=== PATIENT | female | born 1960 | race Caucasian/White ===

== ENCOUNTER → 2018-03-16 13:13 | Outpatient (CLI) | payer OTHER, SELFPAY ==
--- NOTE | 2018-03-16 13:16 | BI_ITS ---
MAMMOGRAPHY - BILATERAL SCREENING 3-D FOREIGN SYNTHESIS REASON FOR EXAM: Female, 57 years old. Bilateral Screening 3-D tomosynthesis PERTINENT HISTORY: No significant family history. TECHNIQUE: 2-D mammograms and 3-D Foreign synthesis of the breast (s) were performed. CAD was performed. COMPARISON: March 02, 2017. FINDINGS: The breast composition is composed of scattered fibroglandular density. Scattered benign calcifications are seen. No dense spiculated masses or suspicious microcalcifications are identified. No architectural distortion is identified. There is no skin thickening or retraction. There has been no significant change since the prior study. BI/SCREENING MAMM (CAD), BILAT IMPRESSION: No mammographic signs of malignancy. Routine yearly mammograms recommended. ASSESSMENT CATEGORY: BIRADS Category 1: Negative. A letter regarding these results will be sent to the patient by the facility within 30 days. FOLLOW UP RECOMMENDATION: Yearly follow up mammogram recommended. (A) Approximately 10% of breast cancers are not detected by mammography. A normal mammogram should not delay biopsy of a clinically suspicious abnormality. Electronically Signed: Derrick Terry MD at 7:58 EDT , Service support ,
== END ==
PROVIDERS: Family Provider Family Medicine; PCP Family Medicine; Visit Provider Obstetrics & Gynecology
DX: Z12.31 Encounter for screening mammogram for malignant neoplasm of breast (principal)
CPT/HCPCS: 77063; 77067

== ENCOUNTER → 2019-03-30 14:35 | Outpatient (CLI) | payer OTHER, SELFPAY ==
--- NOTE | 2019-03-30 14:38 | BI_ITS ---
MAMMOGRAPHY - BILATERAL SCREENING 3-D TOMOSYNTHESIS REASON FOR EXAM: Female, 58 years old. Bilateral Screening 3-D tomosynthesis PERTINENT HISTORY: Sister at age 40 and maternal grandmother at age 80 with breast cancer. Paternal grandmother at age 40 with breast cancer.. TECHNIQUE: 2-D mammograms and 3-D Tomosynthesis of the breast (s) were performed. CAD was performed. COMPARISON: March 16, 2018. FINDINGS: The breast composition is composed of scattered fibroglandular density. Scattered benign calcifications are seen. No dense spiculated masses or suspicious clustered microcalcifications are identified. No architectural distortion is identified. There is no skin thickening or retraction. Completely stable, well-circumscribed, subcentimeter nodules are identified bilaterally. There are typically benign-appearing calcifications. There has been no significant change since the prior study. BI/SCREENING MAMM (CAD), BILAT IMPRESSION: Stable examination. No mammographic signs of malignancy. Routine yearly mammograms recommended. ASSESSMENT CATEGORY: BIRADS Category 2: Benign. A letter regarding these results will be sent to the patient by the facility within 30 days. FOLLOW UP RECOMMENDATION: Yearly follow up mammogram recommended. (A) Approximately 10% of breast cancers are not detected by mammography. A normal mammogram should not delay biopsy of a clinically suspicious abnormality. Electronically Signed: Derrick Terry MD at 16:39 EDT , Service support ,
== END ==
PROVIDERS: Family Provider Family Medicine; PCP Family Medicine; Visit Provider Obstetrics & Gynecology
DX: Z12.31 Encounter for screening mammogram for malignant neoplasm of breast (principal)
CPT/HCPCS: 77063; 77067

== ENCOUNTER → 2020-02-01 12:07 | Outpatient (CLI) | payer OTHER, SELFPAY ==
[2020-02-01 12:39] LABS: D-Dimer Quantitative (DVT/PE) 0.28 FEU/ug/m (0.27-0.49)
== END ==
PROVIDERS: PCP Family Medicine; Referring Provider Internal Medicine Pulmonary Disease; Visit Provider Internal Medicine Pulmonary Disease
DX: I26.99 Other pulmonary embolism without acute cor pulmonale (principal); Z86.718 Personal history of other venous thrombosis and embolism
CPT/HCPCS: 36415; 85379

== ENCOUNTER → 2020-02-05 12:50 | Outpatient (CLI) | payer OTHER, SELFPAY ==
--- NOTE | 2020-02-05 13:06 | CT_ITS ---
STUDY: LOW DOSE CT LUNG CANCER SCREENING REASON FOR EXAM: Female, 59 years old. LUNG SCREEN, SMOKER X 20-30 YEARS 1/2 PPD, QUIT 2017, SOB RADIATION DOSAGE (If Supplied By Facility): CTDIvol = ( 1.70 ) mGy, DLP = ( 51.91 ) mGycm TECHNIQUE: No contrast was administered. Low dose technique was utilized (average mAS-38 and kVp 120). 1.25 mm axial source images with a slice interval of 1.25-mm were reconstructed in lung windows. 2.5 mm axial source images with a slice interval of 2.5-mm were reconstructed in lung windows. 5.0 mm axial source images with a slice interval of 5.0-mm were reconstructed in soft tissue windows. Nodule measured using lung windows on PACS and/or independent workstation with automated measurement of minimum and maximum diameter. Nodule measurement reported as average diameter rounded to the nearest whole number. Growth is defined as an increase ins size of greater than 1.5 mm. COMPARISON: None. FINDINGS: Lungs and pleura: Mild interstitial scarring is present in the right lower lobe and the left lower lobe costophrenic angle. No emphysematous cysts are present. No acute infiltrates or nodules. No effusions. No hyperinflation. Mediastinum and pulmonary delfino: No mass or adenopathy. Heart and great vessels: Normal heart size. No pericardial effusion. No aneurysms. Minor atherosclerotic plaque is present in the aortic arch. Skeletal structures and chest wall: Multilevel degenerative changes are seen in the spine. An old mid thoracic vertebral body compression deformity is also seen. Upper abdomen: Not optimized for soft tissue evaluation however, No acute or significant findings. CT/Low Dose CT Lung Screening IMPRESSION: 1. No demonstrated acute or significant process of the lungs. No emphysema or nodules or consolidation. 2. Minor interstitial scarring. 3. Lung-RADS category 1 - Continue annual screening with LDCT in 12 months. IMPORTANT NOTES FOR USE: ACR Lung-RADS Version 1.0 Assessment Categories Release Date: March 25, 2014 Category: Coded 0-4 bases on nodule(s) with highest degree of suspicion. Negative screen is defined as categories 1 and 2; a positive screen is defined as categories 3 and 4. Category 3 and 4A nodules that are unchanged on interval CT should be coded as category 2, and individuals returned to screening in 12 months. Category 4X: Category 3 or 4 nodules with additional imaging findings that increase the suspicion of lung cancer, such as spiculation, GGN that doubles in size in 1 year, enlarged lymph notes, etc. Category Modifiers: S (significant finding unrelated to lung cancer) and C (prior history of treated lung cancer) may be added to the 0-4 Lung-RADS Electronically Signed: Boyd Landon MD at 14:19 EDT , Service support ,
== END ==
PROVIDERS: PCP Family Medicine; Referring Provider Internal Medicine Pulmonary Disease; Visit Provider Internal Medicine Pulmonary Disease
DX: Z12.2 Encounter for screening for malignant neoplasm of respiratory organs (principal); Z87.891 Personal history of nicotine dependence
CPT/HCPCS: G0297

== ENCOUNTER → 2021-05-28 13:58 | Outpatient (CLI) | payer OTHER, SELFPAY ==
--- NOTE | 2021-05-28 14:07 | EKG12_ITS ---
Test Reason : PREOP Blood Pressure : / mmHG Vent. Rate : 064 BPM Atrial Rate : 064 BPM P-R Int : 170 ms QRS Dur : 096 ms QT Int : 418 ms P-R-T Axes : 020 037 042 degrees QTc Int : 431 ms Normal sinus rhythm Normal ECG Confirmed by YEMI GR, AUDELIA ([id number]), state editor RIKI BROWN ([id number]) on 05/29/2021 8:57:31 AM Referred By: José Miguel Mustafa Confirmed By:JYOTSNA BRAGG MD
[2021-05-28 15:15] LABS: Hematocrit 38.2 % (37-47); Hemoglobin 12.3 g/dL (12.0-15.0); Mean Corp Hgb Conc 32.2 g/dL (32-36); Mean Corpuscular Volume 93.2 fL (81-99); Mean Platelet Vol. 9.4 fl (6.2-12.0); Platelet Count 268 K/mm3 (150-450); RBC Distribution Width CV 13.4 % (11.6-14.6); RBC Distribution Width SD 45.7 fl (35.1-43.9); White Blood Count 5.7 K/mm3 (4.4-11.0)
[2021-05-28 15:43] LABS: Anion Gap 8 (5-15); BUN 18 mg/dL (7-18); BUN/Creat Ratio 16.8 RATIO (10-20); Calcium,Total 8.8 mg/dL (8.5-10.1); Chloride 107 mmol/L (98-107); Creatinine, Serum 1.07 mg/dL (0.55-1.02); EST Glomerular Filtration Rate 56 mL/min (>60); Est Glom Filt Rate - Afr Amer 68 mL/min (>60); Glucose 113 mg/dL (74-106); Potassium 3.6 mmol/L (3.5-5.1); Sodium Level 142 mmol/L (136-145)
== END ==
PROVIDERS: PCP Family Medicine; Referring Provider Surgery; Visit Provider Surgery
DX: Z01.812 Encounter for preprocedural laboratory examination (principal)
CPT/HCPCS: 36415; 80048; 85027; 87635; 93005; C9803; U0005; U0003

== ENCOUNTER → 2022-08-20 | Outpatient (CLI) | payer OTHER, SELFPAY ==
--- NOTE | 2022-08-20 15:28 | CT_ITS ---
STUDY: LOW DOSE CT LUNG CANCER SCREENING REASON FOR EXAM: Female, 61 years old. Former smoker with 40 pack-year history 8 years ago. Stopped RADIATION DOSAGE (If Supplied By Facility): CTDIvol = ( 3.02 ) mGy, DLP = ( 97.79 ) mGycm TECHNIQUE: No contrast was administered. Low dose technique was utilized (average mAS-38 and kVp 120). 1.25 mm axial source images with a slice interval of 1.25-mm were reconstructed in lung windows. 2.5 mm axial source images with a slice interval of 2.5-mm were reconstructed in lung windows. 5.0 mm axial source images with a slice interval of 5.0-mm were reconstructed in soft tissue windows. COMPARISON: 02/05/2020. NODULES: Total lung nodules (excluding granulomas): 0 Emphysema: Diffuse emphysematous changes. There is minimal linear scarring remaining in the lingula and right lower lobe. Endobronchial lesion: None Aorta: Minimal atherosclerotic changes without aneurysm. CORONARY ARTERIES: Coronary artery calcification are not present Heart: Normal Pulmonary artery: Normal Mediastinal nodes: Nonspecific subcentimeter mediastinal lymphadenopathy. This is unchanged. Other chest and abdominal findings: CT/Low Dose CT Lung Screening IMPRESSION: Lung-RADS category 1 - Continue annual screening with LDCT in 12 months. IMPORTANT NOTES FOR USE: ACR Lung-RADS Version 1.1 Assessment Categories Release Date: 2018 Category: Coded 0-4 bases on nodule(s) with highest degree of suspicion. Negative screen is defined as categories 1 and 2; a positive screen is defined as categories 3 and 4. Category 3 and 4A nodules that are unchanged on interval CT should be coded as category 2, and individuals returned to screening in 12 months. Category 4X: Category 3 or 4 nodules with additional imaging findings that increase the suspicion of lung cancer, such as spiculation, GGN that doubles in size in 1 year, enlarged lymph notes, etc. Category Modifiers: S (significant finding unrelated to lung cancer) Electronically Signed: Jonathan Mead DO at 16:30 EDT Reading Location ID and State: [address] [place] [address] Tel [phone], Service support ,
== END | disposition home or self-care (01) ==
LOC: CT 15:21
PROVIDERS: PCP Family Medicine; Visit Provider Internal Medicine Pulmonary Disease
DX: Z12.2 Encounter for screening for malignant neoplasm of respiratory organs (principal); Z87.891 Personal history of nicotine dependence
CPT/HCPCS: 71271

== ENCOUNTER → 2023-05-16 | Outpatient (CLI) | payer OTHER, SELFPAY ==
--- NOTE | 2023-05-16 09:42 | VDLE_ITS ---
Reason For Study: HX LLE DVT RIGHT LEFT CFV is compressible, spontaneous, phasic, CFV is compressible, spontaneous, phasic, competent and demonstrates normal competent, and demonstrates normal augmentation. augmentation. FV is compressible, spontaneous, phasic, FV is compressible, spontaneous, phasic, competent and demonstrates normal competent and demonstrates normal augmentation. augmentation. POP V is compressible, spontaneous, phasic, POP V is compressible, spontaneous, phasic, competent and demonstrates normal competent and demonstrates normal augmentation. augmentation. T/P Trunk is compressible. T/P Trunk is compressible. PTV is compressible. PTV is compressible. RT PerV is compressible. LT PerV is compressible. SSV proximal calf is competent and measures SSV proximal calf is competent and measures 0.17 x 0.18 cm. 0.13 X 0.12 cm. SFJ is competent w/GSV diameter 0.58 and no SFJ IS COMPETENT W/GSV diameter of 0.46 and flow in GSV S/P EVLA. no flow S/P EVLA GSV is occluded, S/P EVLA. GSV is occluded, S/P EVLA. Procedure This is a venous duplex using B-mode, color flow and spectral Doppler. Exam performed in department. VL/Venous Duplex US - Marcelo Extrem Interpretation Summary Deep veins of the lower extremities are bilaterally patent and compressible seg mentally. There is no evidence of deep vein thrombosis on either side. Valvular competence appears in tact within the proximal deep venous systems bilaterally. Great saphenous veins are occluded bi laterally, consistent with prior endothermal venous ablation procedures. Small saphenous veins are pa tent and competent bilaterally. Ordering Physician: José Miguel Mustafa Referring Physician: Fahad Garcia Performed By: Mona Hunter, RDCS, RVT
== END | disposition home or self-care (01) ==
PROVIDERS: PCP Family Medicine; Referring Provider Surgery; Visit Provider Surgery
DX: Z86.718 Personal history of other venous thrombosis and embolism (principal)
CPT/HCPCS: 93970

== ENCOUNTER → 2023-12-23 | Outpatient (CLI) | payer OTHER, SELFPAY ==
--- NOTE | 2023-12-23 16:12 | CT_ITS ---
STUDY: LOW DOSE CT LUNG CANCER SCREENING REASON FOR EXAM: Female, 63 years old. 4 cigarettes per day x20 years, quit in 2016 RADIATION DOSAGE (If Supplied By Facility): CTDIvol = ( 3.02 ) mGy, DLP = ( 96.28 ) mGycm TECHNIQUE: No contrast was administered. Low dose technique was utilized (average mAS-38 and kVp 120). 1.25 mm axial source images with a slice interval of 1.25-mm were reconstructed in lung windows. 2.5 mm axial source images with a slice interval of 2.5-mm were reconstructed in lung windows. 5.0 mm axial source images with a slice interval of 5.0-mm were reconstructed in soft tissue windows. COMPARISON: 2021, 2019 FINDINGS: The lung windows show the lungs to be mildly hyperexpanded with emphysematous blebs noted in both upper lung paez. Chronic interstitial changes noted in both lung paez without organized infiltrate, effusion, or suspicious noncalcified mass or nodule. Atelectatic scarring noted in both lung bases. The limited noncontrasted soft tissue windows show normal-appearing thyroid gland. No suspicious axillary, mediastinal or perihilar adenopathy. No calcified coronary vessels. Limited cuts through the upper abdomen show a small hiatal hernia with evidence of GE reflux. Bony structures show degenerative change CT/Low Dose CT Lung Screening IMPRESSION: Lung-RADS category 2 - Continue annual screening with LDCT in 12 months. IMPORTANT NOTES FOR USE: ACR Lung-RADS Version 1.1 Assessment Categories Release Date: 2018 Category: Coded 0-4 bases on nodule(s) with highest degree of suspicion. Negative screen is defined as categories 1 and 2; a positive screen is defined as categories 3 and 4. Category 3 and 4A nodules that are unchanged on interval CT should be coded as category 2, and individuals returned to screening in 12 months. Category 4X: Category 3 or 4 nodules with additional imaging findings that increase the suspicion of lung cancer, such as spiculation, GGN that doubles in size in 1 year, enlarged lymph notes, etc. Category Modifiers: S (significant finding unrelated to lung cancer) Electronically Signed: Raymundo Herring MD at 17:06 EST ,
== END | disposition home or self-care (01) ==
LOC: CT 16:09
PROVIDERS: PCP Family Medicine; Referring Provider Internal Medicine Pulmonary Disease; Visit Provider Internal Medicine Pulmonary Disease
DX: Z12.2 Encounter for screening for malignant neoplasm of respiratory organs (principal); F17.210 Nicotine dependence, cigarettes, uncomplicated
CPT/HCPCS: 71271

== ENCOUNTER → 2025-02-20 | Outpatient (CLI) | payer OTHER, SELFPAY ==
--- NOTE | 2025-02-20 11:02 | MRI_ITS ---
PROCEDURE: BREAST BILATERAL W/O AND W 02/20/2025 REASON FOR EXAM: GENETIC SUSCEPTIBILITY TO OTHER MALIGNANT NEOPLASM 64 year female presents for high-risk screening MRI due to BRCA gene mutation. Family history of breast cancer in her sister at age 40, maternal grandmother at 80 and paternal grandmother at 40. TECHNIQUE: Bilateral breast MRI using a dedicated bilateral breast coil before and following intravenous contrast. Images reviewed with subtraction. CONTRAST: 15 IV Clariscan COMPARISON: Mammograms 09/21/2024, 03/30/2019 and 03/16/2018 FINDINGS: Amount of Fibroglandular Tissue: Scattered fibroglandular tissue. Background Parenchymal Enhancement: Minimal RIGHT Breast: No suspicious mass or non-mass enhancement. LEFT Breast: No suspicious mass or non-mass enhancement. Other Findings: No suspicious axillary or internal mammary lymph nodes. Visualized portions of the thoracic and abdominal viscera are unremarkable. MRI/Breast Bilateral W/O and W IMPRESSION: There is no MR evidence of malignancy in either breast. OVERALL BI-RADS CATEGORY: BI-RADS 1: NEGATIVE Reading Location: [id number]
== END | disposition home or self-care (01) ==
PROVIDERS: PCP Family Medicine; Referring Provider Nurse Practitioner Family; Visit Provider Nurse Practitioner Family
DX: Z15.09 Genetic susceptibility to other malignant neoplasm (principal)
CPT/HCPCS: 77049; A9575; A4216; C8908

== ENCOUNTER → 2025-10-30 | Outpatient (CLI) | payer OTHER, SELFPAY | END | disposition home or self-care (01) | LOC: LABSPEC 15:13 | PROVIDERS: PCP Family Medicine; Referring Provider Otolaryngology; Visit Provider Otolaryngology | DX: J32.8 Other chronic sinusitis (principal) | CPT/HCPCS: 87070; 87205 ==